=== PATIENT | female | born 1965 | race Caucasian/White ===

== ENCOUNTER → 2019-12-19 | Outpatient (CLI) | payer OTHER, SELFPAY ==
--- NOTE | ~2019-12-19 | MR_ITS ---
EXAMINATION: MR brain/brain stem wo/w con DATE: 12/19/2019 11:54 INDICATION: Dizziness and giddiness. TECHNIQUE: Magnetic resonance imaging (MRI) of the brain and brainstem was performed without and with 12 mL MultiHance intravenous contrast. Sequences included sagittal and axial T1-weighted FSE, axial diffusion-weighted FS EPI, axial T2*-weighted GRE, axial T2-weighted FLAIR Propeller, axial T2-weight ed Propeller, small vdafj-pf-fdcq coronal FIESTA, small yokxj-yr-movs coronal T1-weighted FSE, and sm all dvjju-ap-tite axial T1-weighted SPGR. Postcontrast sequences included axial T1-weighted FSE, smal l ouajn-ub-tzlc coronal T1-weighted FSE, and small btcps-hj-pqno axial T1-weighted SPGR. Apparent dif fusion coefficient (ADC) maps were created. COMPARISON: Head CT 01/27/2018 FINDINGS: There is no intracranial hemorrhage, acute infarction, or abnormal intracranial mass lesion . The ventricles are normal in size. The paranasal sinuses are clear. The orbits are normal. The inte rnal auditory canals and inner and middle ears are normal. The mastoid air cells are normal. IMPRESSION: 1. Normal brain. Reviewed, dictated and finalized at location A. GER FOREIGN IMPRESSION: 1. Normal brain.
[2019-12-19 11:21] LABS: Blood Urea Nitrogen 18 mg/dL (8-26); Estimated Glomerular Filt Rate > 60
== END | disposition home or self-care (01) ==
PROVIDERS: PCP Physician Assistant; Visit Provider Physician Assistant
DX: R42 Dizziness and giddiness (principal)
CPT/HCPCS: 70553; A9577

== ENCOUNTER → 2022-08-15 13:48 | Outpatient (CLI) | payer OTHER, SELFPAY ==
--- NOTE | ~2022-08-15 | US_ITS ---
US thyroid INDICATION: Iodine deficiency related diffuse goiter. TECHNIQUE: Real-time sonographic images of the thyroid gland were obtained. COMPARISON: No prior studies for comparison. FINDINGS: The right thyroid lobe measures 5.5 x 1.4 x 1.4 cm. The left thyroid lobe measures 4.9 x 1 .3 x 1.5 cm. There is normal echotexture and echogenicity throughout the thyroid gland. Within the ri ght lobe there is a 9 mm cyst, TR 1. No suspicious masses in either lower lobe to suggest malignancy. Normal vascular flow is present. IMPRESSION: 1. Right thyroid cyst measuring 9 mm, benign. Otherwise, unremarkable thyroid ultrasound. Reviewed, dictated and finalized at location B.
--- NOTE | ~2022-08-15 | CT_ITS ---
EXAMINATION: CT abdomen w con DATE: 08/15/2022 14:27 INDICATION: Abdominal bloating, distention. Constipation. Weight gain. Lymphedema. TECHNIQUE: Computed tomography (CT) of the abdomen was performed with 100 CC Omnipaque 350 intravenou s contrast. Automated exposure control and iterative reconstruction technique were employed. Exam dos e: 361.71 mGy-cm total exam DLP. COMPARISON: None. FINDINGS: The lung bases are clear. Normal heart size. No pericardial or pleural effusion. Approximately 1.1 x 1.3 cm circumscribed hypoattenuating lesion of the hepatic dome with buckling of contrast in one location at the periphery of the lesion. There is a similar approximately 1.1 x 1.3 cm hypoattenuating lesion with a focus of peripheral enhan cement at the lateral aspect of the lower right hepatic lobe. Differential diagnosis includes hemangiomas, less likely metastases, focal nodular hyperplasia, hepat ic adenoma is or hepatocellular carcinomas. Consider hepatic MRI examination for further evaluation. The liver is otherwise unremarkable. The gallbladder is present and relatively contracted. No bile du ct or pancreatic duct dilatation. No pancreatic mass lesion or calcification. Normal splenic size. Normal morphology of the adrenal glands. Approximately 4 mm right renal cyst. 2.6 mm cortical left renal cyst. No renal mass lesion is noted o therwise. No urinary tract calculus or hydroureteronephrosis is detected. Normal caliber of the abdominal aorta. No intraperitoneal or retroperitoneal mass lesion or adenopath y or ascites. No evidence of appendicitis. No bowel obstruction or bowel wall thickening or intraperitoneal free ai r. Included skeletal structures are unremarkable. . IMPRESSION: 2 hepatic masses; consider hepatic MRI for further evaluation Reviewed, dictated and finalized at Location A. Reviewed, dictated and finalized at location A.
== END ==
PROVIDERS: PCP Emergency Medicine; Visit Provider Physician Assistant
DX: I89.0 Lymphedema, not elsewhere classified (principal); R14.0 Abdominal distension (gaseous); R63.5 Abnormal weight gain; E01.0 Iodine-deficiency related diffuse (endemic) goiter
CPT/HCPCS: 74160; 76536; Q9967

== ENCOUNTER → 2022-09-01 13:16 | Outpatient (CLI) | payer OTHER, SELFPAY ==
--- NOTE | ~2022-09-01 | MR_ITS ---
EXAMINATION: MR abdomen wo/w con DATE: 09/01/2022 14:21 INDICATION: Liver mass. TECHNIQUE: Magnetic resonance imaging (MRI) of the abdomen was performed without and with 13 mL Multi Galdino intravenous contrast. COMPARISON: CT abdomen 08/15/2022 FINDINGS: There are two 13 mm masses in the liver with delayed hyperenhancement. No washout. There is a gallsto ne in the gallbladder, which is normal in size. The spleen, pancreas, adrenal glands, and left kidney are normal. There is a 4 mm cyst in right kidney. There are no dilated loops of bowel. There are no pathologically enlarged lymph nodes. There is no free intraperitoneal fluid. IMPRESSION: 1. Two liver masses, each measuring 13 mm. In the absence of known malignancy or chronic liver diseas e, findings are likely hemangiomas. Reviewed, dictated and finalized at location B. IMPRESSION: 1. Two liver masses, each measuring 13 mm. In the absence of known malignancy o r chronic liver disease, findings are likely hemangiomas.
== END ==
PROVIDERS: PCP Physician Assistant; Visit Provider Physician Assistant
DX: K76.9 Liver disease, unspecified (principal)
CPT/HCPCS: 74183; A9577

== ENCOUNTER → 2023-02-10 07:44 | Outpatient (CLI) | payer OTHER, SELFPAY ==
--- NOTE | ~2023-02-10 | US_ITS ---
Abdominal Sonogram: Real-time sonographic imaging of the abdomen was performed. Clinical History: Hepatomegaly Findings: The liver appears normal with no evidence of mass lesion or bile duct dilatation. Main por josue vein demonstrates normal direction of flow. The spleen is normal in size without evidence of foca l lesion. The gallbladder is well distended, and contains an echogenic, shadowing gallstone. No gall bladder wall thickening. The common bile duct measures 4 mm. The visualized pancreas, aorta, and IVC are unremarkable. The right kidney measures 9.8 cm in length and the left kidney measures 11.5 cm. There is no hydronephrosis or renal calculus. Impression: Cholelithiasis. Reviewed, dictated and finalized at location M. Impression: Cholelithiasis.
== END ==
PROVIDERS: PCP Physician Assistant; Visit Provider Physician Assistant
DX: R16.0 Hepatomegaly, not elsewhere classified (principal); K80.20 Calculus of gallbladder without cholecystitis without obstruction
CPT/HCPCS: 76700

== ENCOUNTER 2024-09-02 09:42 | Outpatient (CLI) | payer OTHER, SELFPAY ==
--- NOTE | ~2024-09-02 | NM_ITS ---
NM stress w perf spect multi Procedure: The patient was stressed using Modified Abraham protocol. Prior to the end of exercise 9.4 mCi Tc 99m IV administered. Rest imaging performed following administration of 30 mCi Tc 99m IV. Im ages were reformatted into short axis, horizontal and vertical long axis sections for visual and cat titative analysis. Indication: Syncope Comparison: None Findings: Computer assisted qualitative and quantitative analysis of the immediate and delayed images revealed normal left ventricular perfusion without evidence of fixed or reversible perfusion abnorma lity to suggest ischemia or infarction. Normal left ventricular cavity size, wall motion and ejectio n fraction. Left ventricular ejection fraction measures 77%. Impression: 1: No scintigraphic evidence of resting or stress induced perfusion abnormality. 2: Normal left ventricle ejection fraction measuring 77%. Reviewed, dictated and finalized at location B. Impression: 1: No scintigraphic evidence of resting or stress induced perfusion abnormality . 2: Normal left ventricle ejection fraction measuring 77%.
--- NOTE | 2024-09-02 09:50 | EST_ITS ---
Patient Info Name: Windy Huang Age: 59 years : 1965 Gender: Female Ht: 69 in Wt: 140 lbs BSA: 1.75 m2 HR: 97 bpm BP: 143 / 95 mmHg Heart Rhythm: Sinus Rhythm Exam Date: 09/02/2024 10:50 AM Exam Location: [facility] Patient Status: Outpatient Admit Date: 09/02/2024 Staff Ordering Physician: Nereyda Simpson Attending Provider: Nereyda Simpson Exercise Technologist: Samantha Metzger CT Exercise Physician: Juan Awan DO Exam Type: CA stress test treadmill w NM Study Info Indications Z01.810 - Encounter for preprocedural cardiovascular examination A nuclear stress test was performed. Summary 1. 1. Negative Abraham exercise stress test for ischemic ST changes by ECG criteria. 2. 2. Poor functional capacity, achieving 5.6 METs of workload. 3. 3. Baseline hypertension. 4. 4. Appropriate HR response to exercise. 5. 5. Appropriate HR recovery at 1 minute post exercise. 6. 6. Nuclear scan to follow and will be reported separately. Please correlate with it. 7. 7. Patient informed of the above results. Protocol: Abraham Stress ECG Details Stage: REST Duration (min): 2 min : 3 sec Speed (mph): 0.0 Grade (%): 0 HR (bpm): 91 SBP (mmHg): 143 DBP (mmHg): 95 METS: --- Stage: REST Duration (min): 8 min : 49 sec Speed (mph): 0.0 Grade (%): 0 HR (bpm): 102 SBP (mmHg): 143 DBP (mmHg): 95 METS: --- Stage: STAGE 1 Duration (min): 1 min : 0 sec Speed (mph): 1.7 Grade (%): 10 HR (bpm): 126 SBP (mmHg): 143 DBP (mmHg): 95 METS: --- Stage: STAGE 1 Duration (min): 2 min : 0 sec Speed (mph): 1.7 Grade (%): 10 HR (bpm): 147 SBP (mmHg): 143 DBP (mmHg): 95 METS: --- Stage: STAGE 1 Duration (min): 3 min : 0 sec Speed (mph): 1.7 Grade (%): 10 HR (bpm): 144 SBP (mmHg): 151 DBP (mmHg): 69 METS: --- Stage: STAGE 2 Duration (min): 0 min : 30 sec Speed (mph): 2.5 Grade (%): 12 HR (bpm): 152 SBP (mmHg): 151 DBP (mmHg): 69 METS: --- Stage: RECOVERY Duration (min): 0 min : 29 sec Speed (mph): 0.0 Grade (%): 0 HR (bpm): 152 SBP (mmHg): 151 DBP (mmHg): 69 METS: --- Stage: RECOVERY Duration (min): 1 min : 29 sec Speed (mph): 0.0 Grade (%): 0 HR (bpm): 104 SBP (mmHg): 151 DBP (mmHg): 69 METS: --- Stage: RECOVERY Duration (min): 2 min : 29 sec Speed (mph): 0.0 Grade (%): 0 HR (bpm): 88 SBP (mmHg): 151 DBP (mmHg): 69 METS: --- Stage: RECOVERY Duration (min): 3 min : 13 sec Speed (mph): 0.0 Grade (%): 0 HR (bpm): 109 SBP (mmHg): 170 DBP (mmHg): 88 METS: --- Rest HR: 102 bpm Peak HR: 154 bpm Rest Sys BP: 143 mmHg Peak Sys BP: 170 mmHg Max Pred HR: 161 bpm % Max Pred HR: 96 % Target HR: 137 bpm Max RPP: 26,180 bpm*mmHg Smith Score: -1 Termination Reason: Reached target heart rate or workload Cardiac Symptoms: Shortness of breath Max ST Seg Deviation: 1 mm Total Time: 3 min : 30 sec Rest Valerio BP: 95 mmHg Peak Valerio BP: 88 mmHg Angina Score: None Total MET
== END 2024-09-02 09:43 | disposition home or self-care (01) ==
LOC: ANHCARD 09:43
PROVIDERS: PCP Nurse Practitioner Family; Visit Provider Nurse Practitioner Family
DX: Z01.810 Encounter for preprocedural cardiovascular examination (principal); I10 Essential (primary) hypertension; R53.83 Other fatigue; R55 Syncope and collapse; R06.02 Shortness of breath
CPT/HCPCS: 78452; 93017; A9502